=== PATIENT | female | born 1995 | race African-American/Black ===

== ENCOUNTER 2017-04-10 08:16 | Observation (INO) ==
[2017-04-10] MEDS ORDERED: CYTOTEC PR PRN (10:02)
[2017-04-10] MEDS: PERCOCET-5 PO PRN ×3 (10:28→21:29)
[2017-04-10] MEDS ORDERED: LR 1,000 ML IV SCH ×2 (11:00→11:21)
[2017-04-10 11:04] LABS: HEMATOCRIT 29.2 % (37.0-47.0); HEMOGLOBIN 9.1 g/dL (12.0-16.0); MCH 23.2 PG (27-31); MCHC 31.2 g/dL (33-37); MCV 74.5 FL (81-99); MPV 10.2 FL (7.4-10.4); RBC 3.92 XMIL (4.2-5.4)
[2017-04-10 11:07] LABS: INR 1.12 (0.86-1.15); PROTIME 14.7 Seconds (12.1-15.5)
[2017-04-10 11:08] LABS: PTT PL 30.8 Seconds (22.6-43.9)
--- NOTE | 2017-04-10 16:49 | Diag Imaging Result Doc PS360 ---
US PELVIC NON-OB (LIMITED) - 04/10/2017 INDICATION: r/o retained products of conception,hemorrhage TECHNIQUE: Transabdominal COMPARISON: None FINDINGS: The endometrial canal is heterogeneous consistent with retained products of conception. Overall the endometrial canal measures 1.2 x 7.7 cm. Overall size of the uterus is 9.9 x 8.4 x 4.7 cm. No significant free fluid. Urinary bladder appears grossly normal. IMPRESSION: Findings concerning for some retained products of conception still in the endometrium. Electronically signed by Vickey Taveras 04/10/2017 4:47 PM
[2017-04-10 17:04] LABS: BASO% 0.1 % (0.0-0.8); HEMATOCRIT 27.2 % (37.0-47.0); HEMOGLOBIN 8.4 g/dL (12.0-16.0); IMM GRAN# 0.43 X1000 (0.0-0.04); LYMPH# 0.77 X1000 (1.2-3.4); LYMPH% 3.7 % (20.5-51.1); MANUAL DIFF NEEDED? YES; MCH 22.9 PG (27-31); MCHC 30.9 g/dL (33-37); MCV 74.1 FL (81-99); MONO% 3.3 % (1.7-9.3); MPV 10.6 FL (7.4-10.4); NEUT% 90.9 % (42.2-75.2); PLT 212 X1000 (130-400); RBC 3.67 XMIL (4.2-5.4)
[2017-04-10] MEDS ORDERED: NS 1,000 ML ONE (17:52)
--- NOTE | 2017-04-10 17:54 | HISTORY AND PHYSICAL ---
CHIEF COMPLAINT: Postoperative hemorrhage. HISTORY OF PRESENT ILLNESS: This is a 21-year-old, G2, P1-0-1-1, who was transferred for the [facility] after suction dilation and curettage for a 14 week missed . Intraoperatively patient lost 2 L of blood. She had Methergine as well as Pitocin given prior to a resolution of hemorrhage. Once vitals were stable, patient was transferred to [facility] for subsequent management. OBSTETRICAL HISTORY: G1, full-term vaginal delivery. G2, 14 week missed . 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 PAST SURGERY HISTORY: Denies. PAST SURGICAL HISTORY: Significant for suction dilation and curettage, as well as wisdom teeth extraction. MEDICATIONS: None. ALLERGIES: No known drug allergies. SOCIAL HISTORY: Denies alcohol, tobacco, or illicit drug use. FAMILY HISTORY: Noncontributory. REVIEW OF SYSTEMS: Negative. PHYSICAL EXAMINATION: VITAL SIGNS: Blood pressure 105/58, heart rate 97, respiratory rate 16, O2 saturation 98%, temperature 99 degrees. Urine output 1150 mL. GENERAL: Well-developed, well-nourished female, in no acute distress. HEENT: Pupils equally round, react to light. Extraocular muscle intact. CHEST: Clear to auscultation bilaterally. CV: Regular rate and rhythm. No murmurs, rubs, or gallops. ABDOMEN: Soft, nontender, and nondistended. Uterus firm. EXTREMITIES: No clubbing, cyanosis, or edema. SKIN: No focal lesions. NEUROLOGIC: No focal deficits. ASSESSMENT AND PLAN: 1. Postop day #0 status post suction dilation and curettage for missed . 2. Hemorrhage, resolved. PLAN: Perform transvaginal ultrasound to rule out retained products of conception. Will repeat her CBC. Continue strict I Os q.1 hour until plan discharge. If vitals remain stable and patient's blood loss remains stable, will discharge home with strict bleeding precautions. cc: Madi Meredith MD
[2017-04-10] MEDS ORDERED: TYLENOL PO ONE (18:00)
[2017-04-10] MEDS ORDERED: BENADRYL IV ONE (18:00)
[2017-04-10 18:35] LABS: BANDS 18 % (0-1); LYMPHS 6 % (21-51); MONO 4 % (1-9)
[2017-04-10] MEDS ORDERED: CYTOTEC VAG SCH (19:30)
[2017-04-10] MEDS: CYTOTEC VAG SCH (19:55)
[2017-04-11] MEDS: CYTOTEC VAG SCH (00:08)
[2017-04-11] MEDS ORDERED: CYTOTEC VAG ONE (03:00)
[2017-04-11] MEDS: PERCOCET-5 PO PRN (03:18)
[2017-04-11 06:06] LABS: BASO% 0.2 % (0.0-0.8); EOS# 0.03 X1000 (0.0-0.7); EOS% 0.2 % (0.0-10.0); HEMATOCRIT 30.8 % (37.0-47.0); HEMOGLOBIN 9.9 g/dL (12.0-16.0); IMM GRAN# 0.69 X1000 (0.0-0.04); IMM GRAN% 3.6 % (0.0-0.5); LYMPH# 2.88 X1000 (1.2-3.4); MANUAL DIFF NEEDED? YES; MCH 24.7 PG (27-31); MCHC 32.1 g/dL (33-37); MCV 76.8 FL (81-99); MONO% 12.5 % (1.7-9.3); MPV 10.8 FL (7.4-10.4); NEUT% 68.5 % (42.2-75.2); PLT 194 X1000 (130-400); RBC 4.01 XMIL (4.2-5.4)
[2017-04-11 07:05] LABS: LYMPHS 28 % (21-51); MONO 5 % (1-9)
[2017-04-11] MEDS ORDERED: DOXYCYCLINE 200 MG in NS 250 ML IV ONE (09:00)
[2017-04-11] MEDS ORDERED: DIPRIVAN 1% ONE (09:27)
[2017-04-11] MEDS ORDERED: XYLOCAINE-MPF 2% ONE (09:28)
[2017-04-11] MEDS ORDERED: FENTANYL ONE (09:30)
[2017-04-11] MEDS ORDERED: QUELICIN (DOSE) ONE (09:32)
[2017-04-11] MEDS ORDERED: TORADOL ONE (09:44)
[2017-04-11] MEDS ORDERED: BICITRA ONE (09:58)
[2017-04-11] MEDS ORDERED: PEPCID ONE (09:58)
[2017-04-11] MEDS ORDERED: LR 1,000 ML IV SCH (10:00)
[2017-04-11] MEDS ORDERED: PEPCID IV ONE (10:00)
[2017-04-11] MEDS ORDERED: SODIUM CHLORIDE 0.9% INJ ONE (10:00)
[2017-04-11] MEDS ORDERED: BICITRA PO ONE (10:00)
[2017-04-11] MEDS ORDERED: DECADRON ONE (10:39)
[2017-04-11] MEDS ORDERED: ZOFRAN ONE (10:39)
[2017-04-11] MEDS ORDERED: MONSEL SOLUTION ONE (10:41)
[2017-04-11] MEDS ORDERED: SILVER NITRATE APPLICATOR ONE ×2 (10:46)
[2017-04-11 13:46] VITALS: BP 108/65
--- NOTE | 2017-04-11 17:40 | OPERATIVE NOTE ---
PROCEDURE DATE: 04/10/2017 PREOPERATIVE DIAGNOSIS: Postoperative day #1 status post suction dilatation and curettage, retained products of conception. POSTOPERATIVE DIAGNOSIS: Postoperative day #1 status post suction dilatation and curettage, retained products of conception. PROCEDURE: Suction dilation and curettage. SURGEON: Madi Meredith MD. INSPECTOR ADVANCED COMPOSITE: Kasie. ANESTHESIA: General. FINDINGS: Positive products of conception removed, gritty texture noted throughout the endometrial cavity post curettage. COMPLICATIONS: None apparent. ESTIMATED BLOOD LOSS: 40-50 mL. SPECIMENS REMOVED: Endometrial curettings/products of conception. OPERATIVE COURSE: After the patient was identified and consents reviewed, general anesthesia was administered without complication. Patient placed on operating table in dorsal supine position. Legs were placed in candy-cane stirrups. The vagina was prepped and draped in a normal sterile fashion. A bivalve speculum was inserted into the vagina. A single-tooth tenaculum was applied to the anterior aspect of the cervix. The cervix was then gradually dilated using Hegar dilators to accommodate a size 12 curved suction tip. Several passes were made and positive products of conception were noted to be removed. A bladed curette was then advanced to the uterine fundus. Several passes were made until a gritty texture could be noted throughout. Curette was removed. Suction was then advanced to the uterine fundus and again, several passes were made until no further products of conception were removed. Adequate hemostasis was noted. The uterine fundus is firm. Single-tooth tenaculum was removed and Monsel's solution as well as silver nitrate were needed to achieve adequate hemostasis at the single-tooth tenaculum site in the cervix. All instruments were then removed. The patient was taken to the recovery room in stable condition. cc: Madi Meredith MD
--- NOTE | 2017-04-12 10:56 | DISCHARGE SUMMARY ---
ADMISSION DATE: 04/10/2017 DISCHARGE DATE: 04/11/2017 PRINCIPAL DIAGNOSIS: Postoperative day #1 status post suction D and C, intraoperative hemorrhage, retained products of conception. PRINCIPAL PROCEDURE: Suction dilation and curettage. HOSPITAL COURSE: The patient was admitted on 04/10/2017 as a transfer from the [facility] secondary to intraoperative hemorrhage during the suction dilation and curettage for 14- week missed . On admission, CBC was drawn. Hemoglobin found to be around 9 and the patient's vaginal bleeding was stable. Transvaginal ultrasound was performed in the afternoon which revealed positive retained products of conception. At that time, Cytotec was given intravaginally overnight and 2 units of packed red blood cells were transfused in anticipation of blood loss either via Cytotec or via possible suction dilation and curettage the following morning, and the patient noted no further passage of retained products of conception with Cytotec, so it was decided to go forward with repeat as suction dilation and curettage. Procedure is performed without complication and a gritty texture could be noted throughout post curettage and adequate hemostasis was noted postoperatively, and the patient stable for discharge on hospital day #1. CONDITION ON DISCHARGE: Stable. ELIMINATION CAPACITY: Independent. Feeding capacity independent. Locomotion capacity independent. Rehab potential. Prognosis good. DISCHARGE MEDICATIONS: 1. Percocet 5/325, 1-2 tabs p.o. q.6 hours p.r.n. pain. DIET: Patient is to maintain a regular diet. PHYSICAL ACTIVITY: As tolerated. DISCHARGE INSTRUCTIONS: The patient is ordered to maintain pelvic rest x6 weeks. The patient is ordered to call or return if fever greater than 100.4, heavy vaginal bleeding, foul smelling vaginal discharge, dizziness, fainting spells, or any other acute changes. She is to be discharged home with orders to follow up in my office in 1 week, and the patient was given strict bleeding precautions and was told that she can return sooner if needed. cc: Madi Meredith MD
== END 2017-04-11 14:35 | disposition home or self-care (01) ==
LOC: P.DIRADM → P.WC 09:55
PROVIDERS: ADMIT Obstetrics & Gynecology; ATTEND Obstetrics & Gynecology